=== PATIENT | male | born 1995 ===

== ENCOUNTER 2024-04-17 12:36 | Emergency (ER) | payer OTHER ==
[2024-04-17] MEDS ORDERED: Sodium Chloride 0.9% 10 ML Syringe FLUSH PRN (12:45)
[2024-04-17] MEDS ORDERED: Tranexamic Acid 1,000 MG in Sodium Chloride 0.9% 100 ML IV ONE (12:45)
[2024-04-17] MEDS ORDERED: Sodium Chloride 0.9% 1,000 ML IV ONE ×2 (12:45→12:46)
[2024-04-17] MEDS ORDERED: Diphtheria,Pertussis(Acell),Tetanus Vaccine 0.5 ML Syringe IM ONE (12:46)
[2024-04-17] MEDS: Iopamidol 612 MG/ML 100 ML Bottle IVPUSH ONE (12:49)
[2024-04-17 12:59] LABS: BASOPHILS PERCENT AUTO 0.3 % (0.0-1.0); EOSINOPHILS PERCENT AUTO 0.9 % (1.0-3.0); HEMATOCRIT 46.1 % (40.0-54.0); HEMOGLOBIN 15.6 g/dL (14.0-18.0); LYMPHOCYTES PERCENT AUTO 12.2 % (20.5-50.1); MEAN CORPUSCULAR HEMOGLOBIN 29.4 pg (27.0-34.0); MEAN CORPUSCULAR HGB CONC 33.8 g/dL (33.0-35.0); MEAN CORPUSCULAR VOLUME 86.8 fL (80-100); MONOCYTES PERCENT AUTO 8.2 % (2-8); NEUTROPHILS PERCENT AUTO 78.4 % (42.2-75.2); PLATELET COUNT,PLT 331 10^3/uL (150-450); RED BLOOD CELL COUNT 5.31 10^6/uL (4.6-6.2); WHITE BLOOD CELL COUNT,WBC 11.9 10^3/uL (5.0-10.0)
[2024-04-17] MEDS: Iopamidol 755 Mg/ML 100 ML Bottle IV ONE (13:04)
[2024-04-17 13:17] LABS: PROTHROMBIN TIME 9.9 SEC (9.0-12.0); PTT,PARTIAL THROMBOPLSTIN TIME 24.3 SEC (22.0-34.0)
[2024-04-17 13:23] LABS: LACTIC ACID 0.8 mmol/L (0.4-2.0)
[2024-04-17 13:30] LABS: A/G RATIO 1.2; ALANINE AMINOTRANSFERASE,ALT 26 U/L (16-63); ALBUMIN 3.8 g/dL (3.4-5.0); ALKALINE PHOSPHATASE 107 U/L (46-116); ANION GAP 10.6 mEq/L (7-13); ASPARTATE AMNIOTRANSFERASE,AST 19 U/L (15-37); BILIRUBIN TOTAL 0.5 mg/dL (0.2-1.0); BLOOD UREA NITROGEN,BUN 10 mg/dL (7-18); BUN/CREATININE RATIO 8.9 (No establ ref range); CALCIUM 8.9 mg/dL (8.5-10.1); CARBON DIOXIDE,CO2 31 mmol/L (21-32); CHLORIDE,CL 105 mmol/L (98-107); CREATINE KINASE,CK 155 U/L (39-308); CREATININE 1.12 mg/dL (0.70-1.30); ESTIMATED GFR 93 mL/min (>=60); GLUCOSE RANDOM 84 mg/dL (70-99); MAGNESIUM 2.2 mg/dL (1.8-2.4); POTASSIUM,K 3.6 mmol/L (3.5-5.1); SODIUM,NA 143 mmol/L (136-145)
[2024-04-17 15:13] LABS: APPEARANCE,URINE SLIGHTLY CLOUDY (CLEAR); BILIRUBIN,URINE NEGATIVE (NEGATIVE); COLOR,URINE YELLOW (YELLOW); GLUCOSE,URINE NEGATIVE (NEGATIVE); KETONES,URINE NEGATIVE (NEGATIVE); LEUKOCYTE ESTERASE,URINE NEGATIVE (NEGATIVE); NITRITE,URINE NEGATIVE (NEGATIVE); OCCULT BLOOD,URINE NEGATIVE (NEGATIVE); PROTEIN,URINE NEGATIVE (NEGATIVE); UROBILINOGEN,URINE 0.2 mg/dL (0.2-1.0)
[2024-04-17 15:41] LABS: METHAMPHETAMINES,URINE POSITIVE (NEGATIVE)
[2024-04-17 15:42] LABS: AMPHETAMINES,URINE POSITIVE (NEGATIVE); BARBITURATES,URINE NEGATIVE (NEGATIVE); BENZODIAZEPINE,URINE NEGATIVE (NEGATIVE); MDMA (ECSTASY), URINE NEGATIVE (NEGATIVE); METHADONE,URINE NEGATIVE (NEGATIVE); OPIATES,URINE NEGATIVE (NEGATIVE); OXYCODONE,URINE NEGATIVE (NEGATIVE); PHENCYCLIDINE,URINE NEGATIVE (NEGATIVE); TCA,URINE NEGATIVE (NEGATIVE)
== END 2024-04-17 15:44 ==
LOC: DL.ED 12:36
DX: S01.511A Laceration without foreign body of lip, initial encounter (principal); V49.50XA Passenger injured in collision with unspecified motor vehicles in traffic accident, initial encounter
CPT/HCPCS: 12011; 36415; 70450; 70498; 71045; 71260; 72125; 72128; 72131; 72170; 73000-LT; 73000-RT; 73020-LT; 73020-RT; 74177; 80053; 80305-QW; 80307; 81003; 82550; 83605; 83735; 84484; 85025; 85610; 85730; 86900; 86901; 93010; 96361; 96374; 99284; 99285-25; Q9967